=== PATIENT | female | born 1995 | race Caucasian/White ===

== ENCOUNTER 2025-02-02 12:17 | Inpatient (IN) | payer OTHER, SELFPAY ==
[2025-02-02] VITALS (54 sets, daily range): BP systolic 107–150; BP diastolic 53–87; PULSE 52–102; RESP 16; TEMP 36.1–36.7; O2SAT 79–100; BMI 26.8
[2025-02-02] MEDS: Lactated Ringers 1,000 ML 999 ML IV (12:45)
[2025-02-02 13:04] LABS: Hematocrit 45.9 % (37-47); Hemoglobin 16.0 g/dL (12.0-15.0); Immature Granulocytes Count 0.070 X10^3/uL (0.0-0.0); Mean Corp Hgb Conc 34.9 g/dL (32-36); Mean Corpuscular Volume 86.6 fL (81-99); Mean Platelet Vol. 10.7 fl (6.2-12.0); NRBC Flagged by Analyzer 0 % (0-5); Platelet Count 193 K/mm3 (150-450); RBC Distribution Width CV 12.9 % (11.6-14.6); RBC Distribution Width SD 40.9 fl (35.1-43.9); Red Blood Count 5.30 M/mm3 (4.2-5.4); White Blood Count 13.3 K/mm3 (4.4-11.0)
[2025-02-02] MEDS: Penicillin G Pot 5,000,000 UNITS in 0.9% Normal Saline (100mL MB+) 100 ML 150 UNITS IV (13:24)
--- NOTE | 2025-02-02 13:33 | HP.PCM.OB_ITS ---
HPI - General General Date of Admission: 02/02/25 Date of Service: 02/02/25 Chief Complaint: labor HPI Narrative LAURE HERNANDEZ, is a 29 F who presents c/o ctxs. Found to be in labor Patient's is uncomplicated to date. Maternal Data Information Final LISA: 02/04/25 Gestational age: 39 5/7 COUNT INCLUDES THE [facility] PFS Medical History no medical history Home Medications ?Medication ?Instructions ?Recorded ?Last Taken ?Type aspirin 81 mg tablet,delayed 81 mg PO DAILY 02/02/25 02/02/25 12:15 History release vitamins-iron fumarate 65 1 tab PO DAILY preg abdoulaye 02/02/25 02/02/25 08:16 History mg iron-folic acid 1 mg tablet ([facility]) Allergy/AdvReac Type Severity Reaction Status Date / Time No Known Allergies Allergy Verified 02/02/25 12:14 Social History Smoking Status: Never smoker History Elective abortions Hx Para 0 Spontaneous abortions Hx # Term Pregnancies Ectopic pregnancies Hx # Pregnancies Multiple births # of living children ROS Constitutional Constitutional: Denies fatigue, fever(s) or malaise Eyes Eyes: Denies change in vision ENT HEENT: Denies dizziness or headache(s) Cardiovascular Cardiovascular: Denies chest pain, dyspnea or lightheadedness Respiratory/Chest Respiratory/Chest: Denies cough or dyspnea Gastrointestinal Gastrointestinal: Denies change in bowel habits Genitourinary Genitourinary: Denies burning urination or genital lesions Integumentary Integumentary: Denies rash Neurologic Neurologic: Denies confusion, dizziness, headache(s), numbness or weakness Vital Signs Vital Signs Vital Signs: 02/02/25 12:13 02/02/25 12:13 Pulse Rate 79 Blood Pressure 137/87 H BP Systolic 137 BP Diastolic 87 Weight Weight: 84.822 kg Body Mass Index (BMI) 26.8 Physical Exam Const alert and no apparent distress General Appearance: cooperative HEENT normocephalic Resp normal respiratory effort Cardio regular rate GI soft to palpation GI Narrative: gravid, nontender, appropriate for gestational age Extremity no calf tenderness General Extremity: edema Skin no wounds Rashes: No rashes noted Psych activity/motor behavior normal Labs Labs Labs: Blood Type Pending Antibody Screen Pending Hct 45.9 % (37-47) Hgb 16.0 g/dL (12.0-15.0) H Syphilis Total Ab Pending Assessment & Plan (1) Spontaneous onset of labor: COMMENT: Estimated weight is less than 4500 g pelvic is clinically adequate to expect vaginal delivery. Group B strep is negative. May have routine pain control measures as indicated. May augment with artificial rupture membranes and Pitocin as needed. Dr. Lux is on-call and is aware. (2) 39 weeks gestation of :
[2025-02-02] MEDS: fentaNYL-bupivacaine (epidural) 100 ML BAG EPIDURAL (14:02)
[2025-02-02] MEDS: Lactated Ringers 1,000 ML 200 ML IV (14:13)
[2025-02-02 14:21] LABS: Syphilis Antibodies Nonreactive (Nonreactive)
[2025-02-02] MEDS: Penicillin G 3,000,000 Units 50 ML 100 UNITS IV (17:28)
--- NOTE | 2025-02-02 18:05 | PCM.PN.OB ---
Subjective Subjective Patient comfortable with epidural. Objective Data Objective Data Vital Signs: Vital Signs Temp Pulse Resp BP Pulse Ox 97.6 F L 68 16 109/61 99 02/02/25 17:25 02/02/25 17:25 02/02/25 17:25 02/02/25 17:25 02/02/25 17:25 Weight: 187 lb Body Mass Index (BMI) 26.8 Intake & Output: Intake and Output for Last 24 Hours 01/31/25 02/01/25 02/02/25 23:59 23:59 23:59 Intake Total 999.33 / 999.33 Output Total 350 / 350 Balance 649.33 / 649.33 Lab / Micro Data 02/02/25 12:45 Labs: Laboratory Results - last 24 hr 02/02/25 12:45: WBC 13.3 H, RBC 5.30, Hgb 16.0 H, Hct 45.9, MCV 86.6, MCH 30.2, MCHC 34.9, RDW Std Deviation 40.9, RDW Coeff of Desiree 12.9, Plt Count 193, MPV 10.7, Immature Gran % (Auto) 0.500, Neut % (Auto) 86.7 H, Lymph % (Auto) 9.1 L, Branch % (Auto) 3.4, Eos % (Auto) 0.1, Baso % (Auto) 0.2, Absolute Neuts (auto) 11.5 H, Absolute Lymphs (auto) 1.21, Nucleated RBC % 0, Syphilis Total Ab Nonreactive, Blood Type A POSITIVE, Antibody Screen NEGATIVE Physical Exam GI Inspection: gravid Narrative: cvx - c/c/0, AROM thin meconium fluid NST FHR Rate Baby A Baseline: 140 Variability:: Moderate Accelerations:: 15 x 15 Decelerations:: Variable Uterine Activity:: Q2-4 minutes Assessment & Plan (1) 39 weeks gestation of : PLAN: Plan COntinue expectant management
[2025-02-02] MEDS: Oxytocin 15 Units/NS 250ml 15 UNITS/250 ML IV.SOLN 334 UNITS IV (19:28)
--- NOTE | 2025-02-02 19:45 | EX.PCM.OBVAG ---
Maternal Data Information Final LISA: 02/04/25 Gestational age: 39&5 Vaginal Delivery Maternal Presentation Maternal Presentation: Active Labor Vaginal Delivery Information Procedure Performed: Spontaneous Vaginal Delivery Surgeon/Practitioner: Joan Lux Date of Procedure: 02/02/25 Pre-Procedure Diagnosis: Labor Post-Procedure Diagnosis: Labor Type of anesthesia: Epidural Estimated Blood Loss: 300ml Findings Description of procedure: Called to room when patient C/C/+2. She was prepped & draped. Patient pushed well to deliver the head. head was gently guided to allow delivery of anterior and posterior shoulders. No excess traction placed on the head. The body delivered. 3VC clamped and cut in delayed fashion. Placenta delivered with gentle traction and good uterine tone obtained. Presentation: VICTOR MANUEL Amniotic Membrane Rupture Type: Artificial Amniotic Fluid Description: Moderate meconium Placental Delivery Description: Expressed Placenta Disposition: [facility] Specimen collected: No Cord Vessel Description: 3 Vessels Cord Entanglement: None A Gender: Male (1 minute): 8 (5 minute): 9 Delayed Cord Clamping: Yes Software Product Specialist recycle driver: No Post Vaginal Deli Medications given after delivery: IV Pitocin Episiotomy Description: None Laceration: 1st degree (bilateral vaginal - repaired with 3-0 vicryl) Complication Complications: No
[2025-02-02] MEDS: Oxytocin 15 Units/NS 250ml 15 UNITS/250 ML IV.SOLN 83 UNITS IV (20:00)
[2025-02-02] MEDS: SELF ADMINISTRATION OF MEDS 1 EACH NOTE (23:43)
[2025-02-03 00:15] VITALS: BP 120/73; PULSE 88
[2025-02-03 00:45] VITALS: BP 119/73; PULSE 88; RESP 16; TEMP 36.6; O2SAT 98
--- NOTE | 2025-02-03 01:28 | NURSING ---
Dr Lux updated on patient assessment. Mcfarland catheter placed and drained for 1500cc. Large softball size hardened area on right labia and vagina. Patient states the lightheadedness has improved but not resolved. BP 120/75 and HR 88. Rates her pain a 5 out of 10 on the pain scale following tylenol and motrin. She is requesting something stronger. TORB for Oxyir 5mg PO q4 hours and to keep ice up tight against her perineum. Plan to contact provider if it worsens.
--- NOTE | 2025-02-03 01:41 | NURSING ---
At 0045 this RN assisted pt up to BR. Upon standing a trickle of blood started and pt states feeling like she was voiding. After sitting pt on toilet trickling stopped. This RN assisted pt with standing and pt states feeling lightheaded. This RN assisted to the bed and gave juice. Fundus firm and vital signs were 119/73 heart rate 88. Right labial and vaginal area swollen the size of a golf ball and firm to touch. Pt states pain 4/5 out of 10 at this time.
[2025-02-03 03:30] VITALS: BP 117/67; PULSE 68; RESP 17; O2SAT 98
--- NOTE | 2025-02-03 04:22 | NURSING ---
Dr Lux notified RN concerned patient is now having pain in her abdomen radiating to her back rating it a 8. She states it is worse than contractions. Stat CBC to be drawn and Dr Lux to be into evaluate.
[2025-02-03 04:48] LABS: Hematocrit 37.1 % (37-47); Hemoglobin 12.8 g/dL (12.0-15.0); Immature Granulocytes Count 0.140 X10^3/uL (0.0-0.0); Mean Corp Hgb Conc 34.5 g/dL (32-36); Mean Corpuscular Volume 87.7 fL (81-99); Mean Platelet Vol. 10.1 fl (6.2-12.0); NRBC Flagged by Analyzer 0 % (0-5); Platelet Count 240 K/mm3 (150-450); RBC Distribution Width CV 13.1 % (11.6-14.6); RBC Distribution Width SD 41.7 fl (35.1-43.9); Red Blood Count 4.23 M/mm3 (4.2-5.4); White Blood Count 15.7 K/mm3 (4.4-11.0)
--- NOTE | 2025-02-03 04:49 | CT_ITS ---
PROCEDURE: ABDOMEN/PELVIS W IV CONT ONLY 02/03/2025 REASON FOR EXAM: VULVAR HEMATOMA TECHNIQUE: Procedure Code: [id number] Modality: CT Procedure: ABDOMEN/PELVIS W IV CONT ONLY Coronal and Sagittal reconstruction series were provided. CONTRAST: Isovue-350 VOLUME: 100 mL One or more dose reduction techniques were used (e.g., Automated exposure control, adjustment of the mA and/or kV according to patient size, use of iterative reconstruction technique. RADIATION DOSE SUMMARY: CTDlvol: 15.81 mGy DLP: 158 mGycm COMPARISON: None. FINDINGS: Large acute right vulvar hematoma is noted measuring 14.5 x 6.5 cm, possibly containing a focus of contrast extravasation suggestive of active bleeding. Enlarged post gravid uterus containing large amount of hemorrhagic fluid. A large clot is noted at the level of the lower uterine segment extending to the uterine cervix and the vagina measuring 11.2 x 12.3 cm. The enlarged uterus is compressing the distal 3rd of the right ureter. Mild fullness of the right collecting system. Mcfarland catheter balloon is seen in the bladder. Mild gastroparesis. Moderate amount of fecal residue in the large bowels. Mild amount of free fluid in the pelvic cul-de-sac. The visualized lung bases are unremarkable. Normal liver. Normal gallbladder and extrahepatic biliary system. Normal spleen. Normal pancreas. Normal bilateral adrenal glands. Normal size of the right kidney. There is no right renal mass. There are no right renal calculi. Normal size of the left kidney. There is no left renal mass. There are no left renal calculi. There is no left hydronephrosis. Normal visualized left ureter. Normal small intestine. Normal colon. The appendix is visualized and appears normal. Normal abdominal aorta. Normal inferior vena cava. Normal retroperitoneum. There is no pelvic mass lesion or lymphadenopathy. Normal osseous structures. CT/Abdomen/Pelvis W IV Cont ONLY IMPRESSION: Large acute right vulvar hematoma is noted measuring 14.5 x 6.5 cm, possibly co ntaining a focus of contrast extravasation suggestive of active bleeding. Enlarged post gravid uterus containing large amount of hemorrhagic fluid. A large clot is noted at the level of the lower uterine segment extending to th e uterine cervix and the vagina measuring 11.2 x 12.3 cm. The enlarged uterus is compressing the distal 3rd of the right ureter. Mild fullness of the right collecting system. Mcfarland catheter balloon is seen in the bladder. Mild gastroparesis. Moderate amount of fecal residue in the large bowels. Mild amount of free fluid in the pelvic cul-de-sac. I discussed the findings with Dr. Jose J Franco at 6:15 a.m. EST. Reading [facility]
--- NOTE | 2025-02-03 04:50 | NURSING ---
Dr Lux at bedside to assess patient. STAT CMP, PT, PTT, fibrinogen,INR, and CT with contrast ordered. 2nd IV placed and hematoma measured. Measures 20cm long and 14 cm across.
--- NOTE | 2025-02-03 04:51 | PCM.PN.OB ---
Subjective Subjective Patient reports significant vulvar and back pain. Oral pain meds are not helping. Called by RN to assess patient. Objective Data Objective Data Vital Signs: Vital Signs Temp Pulse Resp BP Pulse Ox O2 Del Method 98 F 68 17 117/67 98 Room Air 02/03/25 00:45 02/03/25 03:30 02/03/25 03:30 02/03/25 03:30 02/03/25 03:30 02/03/25 03:30 Oxygen Delivery Method Room Air Weight: 187 lb Body Mass Index (BMI) 26.8 Intake & Output: Intake and Output for Last 24 Hours 02/01/25 02/02/25 02/03/25 23:59 23:59 23:59 Intake Total 2466.33 / 2466.33 Output Total 650 / 650 1550 / 1550 Balance 1816.33 / 1816.33 -1550 / -1550 Lab / Micro Data 02/03/25 04:41 02/03/25 04:41 Labs: Laboratory Results - last 24 hr 02/02/25 12:45: WBC 13.3 H, RBC 5.30, Hgb 16.0 H, Hct 45.9, MCV 86.6, MCH 30.2, MCHC 34.9, RDW Std Deviation 40.9, RDW Coeff of Desiree 12.9, Plt Count 193, MPV 10.7, Immature Gran % (Auto) 0.500, Neut % (Auto) 86.7 H, Lymph % (Auto) 9.1 L, [place] % (Auto) 3.4, Eos % (Auto) 0.1, Baso % (Auto) 0.2, Absolute Neuts (auto) 11.5 H, Absolute Lymphs (auto) 1.21, Nucleated RBC % 0, Syphilis Total Ab Nonreactive, Blood Type A POSITIVE, Antibody Screen NEGATIVE 02/03/25 04:41: WBC 15.7 H, RBC 4.23, Hgb 12.8, Hct 37.1, MCV 87.7, MCH 30.3, MCHC 34.5, RDW Std Deviation 41.7, RDW Coeff of Desiree 13.1, Plt Count 240, MPV 10.1, Immature Gran % (Auto) 0.900, Neut % (Auto) 80.4 H, Lymph % (Auto) 12.5 L, Gentry % (Auto) 5.7, Eos % (Auto) 0.2, Baso % (Auto) 0.3, Absolute Neuts (auto) 12.6 H, Absolute Lymphs (auto) 1.96, Nucleated RBC % 0 Physical Exam Const alert, oriented x3 and no apparent distress HEENT normocephalic GI soft to palpation, non-tender and non-distended GI Narrative: fundus firm, mid & below umbilicus Narrative: tender vulvar with right sided hematoma measuring [id number] Extremity normal to inspection and no calf tenderness Assessment & Plan (1) Vulvar hematoma: (2) Vaginal delivery: COMMENT: PPD#1 PLAN: Plan CT pelvis ordered to further assess vulvar hematoma. IV dilaudid ordered. Labs pending. Plan of care discussed with patient & her .
[2025-02-03] MEDS: 0.9% Saline Lock 10 ML Syringe IV ×2 (05:01→07:08)
[2025-02-03 05:11] LABS: AST(SGOT) 40 U/L (<=31); Alanine Aminotransfer ALT/SGPT 21 U/L (<=34); Albumin, Serum 3.1 g/dL (3.5-5.0); Alkaline Phosphatase 122 U/L (35-104); Anion Gap 11 (5-15); BUN 11 mg/dL (4-19); BUN/Creat Ratio 15.4 RATIO (10-20); Calcium,Total 8.7 mg/dL (7.6-11.0); Carbon Dioxide 19.3 mmol/L (21.0-32.0); Chloride 101 mmol/L (98-108); Estimated Creatinine Clearance 143.77 ml/min (50-250); Globulin 2.4 g/dL (2.2-4.2); Glucose 109 mg/dL (70-99); Potassium 4.3 mmol/L (3.3-5.1)
[2025-02-03 05:23] LABS: Prothrombin Time (Protime)PT. 13.6 SECONDS (11.7-14.9)
[2025-02-03 05:24] LABS: Fibrinogen 518 mg/dl (203-444)
[2025-02-03 05:30] LABS: Partial Thromboplast Time 27.4 Seconds (24.1-36.2)
--- NOTE | 2025-02-03 05:35 | NURSING ---
Back from CT with patient. Patient tolerated well and states the dilaudid is helping.
[2025-02-03 06:00] VITALS: BP 120/68; PULSE 80; RESP 17; TEMP 37; O2SAT 100
--- NOTE | 2025-02-03 06:23 | NURSING ---
This RN placed continuous pulse ox on patient at 0345. Pt taken to CT scan at 0500 via bed off the unit.
[2025-02-03] MEDS: Lactated Ringers 1,000 ML 50 ML IV (07:14)
[2025-02-03 07:17] VITALS: BP 113/75; PULSE 88; RESP 16; O2SAT 100
[2025-02-03 08:00] VITALS: BP 118/77; PULSE 74; RESP 16; TEMP 36; O2SAT 100
--- NOTE | 2025-02-03 08:26 | NURSING ---
06:14 Radiologist called unit to speak with Dr Lux about CT Scans results. 06:20 Call placed to [place] by Dr Lux regarding possible transfer to [facility]. 06:[address] Lozoya at [facility] . Call placed to [facility] with original ETA of [address] Lux spoke with [facility] for possible earlier transport. 0714 Escalated per Connie Madsen RN to obtain an earlier ETA through [facility]. ETA now 60 minutes. 0830 Squad arrives on unit Dr Lux aware.
--- NOTE | 2025-02-03 08:56 | NURSING ---
Report called to [facility] this nurse spoke to [place] PIZARRO
== END 2025-02-03 08:41 | disposition short-term general hospital (02) | DRG 806 ==
PROVIDERS: Admitting Provider Obstetrics & Gynecology; PCP Internal Medicine; Visit Provider Obstetrics & Gynecology
DX: O77.0 Labor and delivery complicated by meconium in amniotic fluid (principal); Z37.0 Single live birth; O71.7 Obstetric hematoma of pelvis; O70.0 First degree perineal laceration during delivery; Z3A.39 39 weeks gestation of pregnancy
CPT/HCPCS: 59025; 59050; 74177; 80053; 85025; 85384; 85610; 85730; 86780; 86850; 86900; 86901; 99221; Q9967; A4216; G0378; J2405